=== PATIENT | male | born 1965 ===

== ENCOUNTER 2016-12-31 18:05 | Emergency (ER) | payer OTHER ==
[2016-12-31 18:34] VITALS: BMI 29.9
[2016-12-31 18:38] VITALS: TEMP 98.2
[2016-12-31] MEDS ORDERED: Sodium Chloride 0.9% 1,000 ML IV STA (19:01)
--- NOTE | 2016-12-31 19:05 | ED PDOC ---
Arrival/HPI <ChaceHéctor - Last Filed: 12/31/16 22:56> - General Historian: Patient <Tomas Sol - Last Filed: 01/01/17 01:14> - General Chief Complaint: Abdominal Pain Time Seen by Provider: 12/31/16 18:56 - History of Present Illness Narrative History of Present Illness (Text): 12/31/16 19:02 50 y/o male, no significant pmh, nkda, c/o rt. flank and testicular pain x 1 day with no fall or trauma. Pt. stated that he has sudden onset of rt. flank and rt. lower testicular pain started today this afternoon, admits urinary symptoms, no penile discharge, no nausea or vomiting, no fever or chills, no chest pain or shortness of breath, no numbness or tingling, no other medical or psychological complaints. (Tomas Sol) Past Medical History - Provider Review Nursing Documentation Reviewed: Yes - Infectious Disease Hx of Infectious Diseases: None - Psychiatric Hx Substance Use: No - Anesthesia Hx Anesthesia: No <Tomas Sol - Last Filed: 01/01/17 01:14> Family/Social History - Physician Review Nursing Documentation Reviewed: Yes Family/Social History: Unknown Family HX Smoking Status: Never Smoked Hx Alcohol Use: No Hx Substance Use: No <Tomas Sol - Last Filed: 01/01/17 01:14> Allergies/Home Meds <ChaceHéctor - Last Filed: 12/31/16 22:56> <Tomas Sol - Last Filed: 01/01/17 01:14> Allergies/Adverse Reactions: Allergies No Known Allergies Allergy (Verified 12/31/16 18:34) Review of Systems - Review of Systems Constitutional: absent: Fatigue, Fevers Eyes: absent: Vision Changes ENT: absent: Hearing Changes Respiratory: absent: SOB, Cough Cardiovascular: absent: Chest Pain Gastrointestinal: Abdominal Pain. absent: Nausea, Vomiting Genitourinary Male: absent: Dysuria, Urinary Output Changes Musculoskeletal: Back Pain. absent: Arthralgias, Neck Pain, Joint Swelling Skin: absent: Rash, Pruritis, Skin Lesions, Laceration Neurological: absent: Headache, Dizziness, Focal Weakness <Tomas Sol - Last Filed: 01/01/17 01:14> Physical Exam Vital Signs Reviewed: Yes Temperature: Afebrile Blood Pressure: Normal Pulse: Regular Respiratory Rate: Normal Appearance: Positive for: Well-Appearing, Non-Toxic Pain Distress: Moderate Mental Status: Positive for: Alert and Oriented X 3 - Systems Exam Head: Present: Atraumatic, Normocephalic Pupils: Present: PERRL Extroacular Muscles: Present: EOMI Conjunctiva: Present: Normal Mouth: Present: Moist Mucous Membranes Neck: Present: Normal Range of Motion Respiratory/Chest: Present: Clear to Auscultation, Good Air Exchange. No: Respiratory Distress, Accessory Muscle Use Cardiovascular: Present: Regular Rate and Rhythm, Normal S1, S2. No: Murmurs Abdomen: Present: Tenderness (RLQ), Normal Bowel Sounds. No: Distention, Peritoneal Signs, Rebound, Guarding Genitourinary Male: Present: Normal External Genitalia, Circumcised Penis. No: Lesions, Penile Discharge, Testicle Tenderness, Penile Swelling, Masses, Erythema, Hernias, Testicle Swelling Back: Present: Normal Inspection. No: Midline Tenderness, Paraspinal Tenderness , Decubitus Ulcer Upper Extremity: Present: Normal Inspection. No: Cyanosis, Edema Lower Extremity: Present: Normal Inspection. No: Edema Neurological: Present: GCS=15, Speech Normal, Motor Func Grossly Intact, Gait Normal, Memory Normal Skin: Present: Warm, Dry, Normal Color. No: Rashes Psychiatric: Present: Alert, Oriented x 3, Normal Insight, Normal Concentration <Tomas Sol - Last Filed: 01/01/17 01:14> Vital Signs Temp Pulse Resp BP Pulse Ox 12/31/16 18:37 98.2 F 61 18 145/86 97 Medical Decision Making <Héctor Mas - Last Filed: 12/31/16 22:56> - Lab Interpretations I have reviewed the lab results: Yes Interpretation: Abnormal lab values (+hematuria) - RAD Interpretation Solar Crew Member: Radiologist <Tomas Sol - Last Filed: 01/01/17 01:14> ED Course and Treatment: 12/31/16 19:07 -labs/ua -Testicular sonogram -CT abdomen and pelvis -IVF/toradol -observe and reassess 01/01/17 01:14 -Labs are non-significant -UA show +hematuria with no UTI -CT abdomen and pelvis show: 1.7 x 1.6 x 1.5 cm lesion within RIGHT kidney, indeterminate by CT criteria. Probable small LEFT peripelvic cyst. Mild pelvocaliectasis of RIGHT kidney. Mildly dilated RIGHT ureter. 0.4 x 0.4 x 0.3 cm calculus at/near RIGHT ureterovesical junction. -Testicular sonogram -IVF/flomax/strainer ordered. -Sonogram show rt. hydrocele. -Pain resolved in the ER, pain well control, no UTI. -I Checked the [facility] report, there is no visible recorded controlled substances being prescribed for the past 12 months. -Discharge home with keflex, flomax, Percocet, strainer, stay hydrated, bed rest , follow up with your own pmd and urologist within 2 days, return to the ER for any new or worsening signs or symptoms. (Tomas Sol) - Lab Interpretations Lab Results: 12/31/16 19:20 12/31/16 19:20 Lab Results 12/31/16 19:20: Sodium 140, Potassium 4.3, Chloride 104, Carbon Dioxide 25, Anion Gap 15, BUN 21, Creatinine 1.1, Est GFR ( Amer) > 60, Est GFR (Non- Af Amer) > 60, Random Glucose 126 H, Calcium 9.4, Total Bilirubin 0.6, AST 31, ALT 36, Alkaline Phosphatase 88, Total Protein 7.9, Albumin 4.5, Globulin 3.4, Albumin/Globulin Ratio 1.3 12/31/16 19:20: WBC 10.4, RBC 4.94, Hgb 15.7, Hct 43.2, MCV 87.4, MCH 31.8, MCHC 36.3, RDW 12.1, Plt Count 226, MPV 9.4, Gran % 75.4 H, Lymph % (Auto) 16.9 L, Will % (Auto) 7.1 H, Eos % (Auto) 0.4 L, Baso % (Auto) 0.2, Gran # 7.80 H, Lymph # 1.8, Will # 0.7 H, Eos # 0.0, Baso # 0.02 12/31/16 18:59: Urine Color Yellow, Urine Appearance Sl cloudy, Urine pH 6.0, Ur Specific [place] >= 1.030, Urine Protein 30 H, Urine Glucose (UA) Negative, Urine Ketones Negative, Urine Blood Large H, Urine Nitrate Negative, Urine Bilirubin Negative, Urine Urobilinogen 1.0 H, Ur Leukocyte Esterase Negative, Urine RBC 25 - 30, Urine WBC 0 - 2 - RAD Interpretation Radiology Orders: 12/31/16 19:07 ABDOMEN & PELVIS [ABD & PELVIS IV CONTRAST ONLY] [CT] Stat 12/31/16 21:32 TESTES DUPLEX COMPLETE [US] Stat CT Abdomen and Pelvis: FINDINGS: Limitations: Motion artifact - mild. Lower thorax: Minimal atelectasis. ABDOMEN: Liver: Unremarkable. No mass. Gallbladder and bile ducts: No calcified stones. No ductal dilation. Pancreas: No ductal dilation. No mass. Spleen: No splenomegaly. Adrenals: No mass. Kidneys and ureters: 1.7 x 1.6 x 1.5 cm lesion within RIGHT kidney, indeterminate by CT criteria. Probable small LEFT peripelvic cyst. Mild pelvocaliectasis of RIGHT kidney. Mildly dilated RIGHT ureter. 0.4 x 0.4 x 0.3 cm calculus at/near RIGHT ureterovesical junction. Stomach and bowel: No definite mural thickening. No obstruction. Appendix: Normal caliber. No inflammation. PELVIS: Bladder: Unremarkable. Reproductive: Mildly enlarged prostate. ABDOMEN and PELVIS: Intraperitoneal space: No significant fluid collection. No free air. Bones/joints: Mild degenerative changes of spine. No acute fracture. Soft tissues: Unremarkable. Vasculature: Unremarkable. No aneurysm. Lymph nodes: No pathologically enlarged lymph nodes. IMPRESSION: 1. RIGHT distal ureteral calculus with mild hydroureteronephrosis. 2. Kidney lesion, indeterminate. Recommend nonemergent ultrasound or MRI. 3. Incidental/non-acute findings are described above. Dictated By: Satya Byers MD Dictated Date/Time: 12/31/16 214 Testicular sonogram: FINDINGS: Right testicle: No mass. No torsion. Left testicle: No mass. No torsion. Epididymides: Unremarkable as visualized. Scrotum: Small RIGHT hydrocele. IMPRESSION: 1. No sonographic evidence of testicular torsion. 2. Incidental/non-acute findings are described above. Thank you for allowing us to participate in the care of your patient. Dictated and Authenticated by: Satya Byers MD 12/31/2016 11:29 PM Eastern Time ([place] & [place]) (Tomas Sol) - Medication Orders Current Medication Orders: Sodium Chloride (Sodium Chloride 0.9%) 1,000 mls @ 500 mls/hr IV .Q2H YVON Last Admin: 01/01/17 00:57 Dose: 500 mls/hr Discontinued Medications Sodium Chloride (Sodium Chloride 0.9%) 1,000 mls @ 999 mls/hr IV .Q1H1M STA Stop: 12/31/16 20:01 Last Admin: 12/31/16 19:36 Dose: 999 mls/hr Iohexol (Omnipaque 350 100 Ml) Confirm Administered Dose 350 mg .ROUTE .STK-MED ONE Stop: 12/31/16 20:18 Ketorolac Tromethamine (Toradol) 30 mg IVP STAT STA Stop: 12/31/16 19:02 Last Admin: 12/31/16 19:36 Dose: 30 mg Tamsulosin HCl (Flomax) 0.4 mg PO STAT STA Stop: 12/31/16 22:37 Last Admin: 01/01/17 00:56 Dose: 0.4 mg - PA / HAND THERAPIST / Resident Statement SONIA has reviewed & agrees with the documentation as recorded. <Héctor Mas - Last Filed: 12/31/16 22:56> - PA / HAND THERAPIST / Resident Statement SONIA has reviewed & agrees with the documentation as recorded. <Tomas Sol - Last Filed: 01/01/17 01:14> Disposition/Present on Arrival <Héctor Mas - Last Filed: 12/31/16 22:56> - Present on Arrival Any Indicators Present on Arrival: No History of DVT/PE: No History of Uncontrolled Diabetes: No Urinary Catheter: No History of Decub. Ulcer: No History Surgical Site Infection Following: None - Disposition Have Diagnosis and Disposition been Completed?: Yes Disposition Time: 22:37 Patient Plan: Discharge <Tomas Sol - Last Filed: 01/01/17 01:14> - Disposition Diagnosis: Ureterolithiasis, Renal lesion, Hydrocele Disposition: HOME/ ROUTINE Patient Problems: Current Active Problems Problem Status Onset Ureterolithiasis Acute Renal lesion Acute Condition: IMPROVED Additional Instructions: -Discharge home with keflex, flomax, Percocet, strainer, stay hydrated, bed rest , follow up with your own pmd and urologist within 2 days, return to the ER for any new or worsening signs or symptoms. Prescriptions: Cephalexin [cephalexin] 500 mg PO TID #21 cap oxyCODONE/Acetaminophen [Percocet 5/325 mg Tab] 1 tab PO QID PRN #12 tab PRN Reason: Other Tamsulosin HCl [Flomax] 0.4 mg PO DAILY #8 cap.er.24h Referrals: Jason Jorgensen MD [Staff Provider] - [place] up [place] [facility] [place] - Follow up with primary Forms: [facility] ([place]), WORK NOTE
[2016-12-31 19:36] LABS: ADD MANUAL DIFF? NO
[2016-12-31 19:50] LABS: BASO # 0.02 K/mm3 (0.0-2.0); BASO % 0.2 % (0.0-3.0); EOS % 0.4 % (1.5-5.0); GRAN % 75.4 % (50.0-68.0); HEMATOCRIT 43.2 % (42.0-52.0); LYMPH # 1.8 (1.2-3.4); LYMPH % 16.9 % (22.0-35.0); MEAN CELL VOLUME 87.4 fL (80.0-105.0); MEAN CORPUSCULAR HEMOGLOBIN 31.8 pg (25.0-35.0); MEAN CORPUSCULAR HGB CONC 36.3 g/dl (31.0-37.0); MEAN PLATELET VOLUME 9.4 fl (7.0-11.0); MONO # 0.7 (0.1-0.6); MONO % 7.1 % (1.0-6.0); PLATELET COUNT 226 10^3/uL (120.0-450.0); RED CELL DISTRIBUTION WIDTH 12.1 % (11.5-14.5); WHITE BLOOD COUNT 10.4 10^3/ul (4.5-11.0)
[2016-12-31 19:59] LABS: ALB/GLOB RATIO 1.3 (1.1-1.8); ALKALINE PHOSPHATASE 88 U/L (38-133); ALT/SGPT 36 U/L (7-56); AST/SGOT 31 U/L (15-59); BILIRUBIN,TOTAL 0.6 mg/dL (0.2-1.3); BLOOD UREA NITROGEN 21 mg/dL (7-21); CALCIUM 9.4 mg/dL (8.4-10.5); CARBON DIOXIDE 25 mmol/L (21-33); CHLORIDE 104 mmol/L (98-107); GFR AFRICAN-AMERICAN > 60; GLUCOSE,RANDOM 126 mg/dL (70-110); POTASSIUM 4.3 mmol/L (3.6-5.0); SODIUM 140 mmol/L (132-148); TOTAL PROTEIN 7.9 g/dL (5.8-8.3)
[2016-12-31 20:06] LABS: URINE BILIRUBIN NEGATIVE (NEGATIVE); URINE BLOOD LARGE (NEGATIVE); URINE GLUCOSE (UA) NEGATIVE (NEGATIVE); URINE KETONE NEGATIVE (NEGATIVE); URINE LEUKOCYTE ESTERASE NEGATIVE Leu/uL (NEGATIVE); URINE PROTEIN 30 mg/dL (<30 mg/dL)
[2016-12-31 20:10] LABS: URINE APPEARANCE SL CLOUDY (CLEAR); URINE COLOR YELLOW (YELLOW)
[2016-12-31 20:12] LABS: URINE RBC 25 - 30 /hpf (0-2); URINE WBC 0 - 2 /hpf (0-6)
[2016-12-31] MEDS ORDERED: Iohexol 350 MG/100 ML VIAL ONE (20:17)
--- NOTE | 2016-12-31 21:48 | CT ---
EXAM: CT Abdomen and Pelvis With Intravenous Contrast CLINICAL HISTORY: 51 years old, male; Pain; Abdominal pain; Flank; Right; Additional info: Rt. Flank to the rt. Testicular/pelvic pain x 1 da TECHNIQUE: Axial computed tomography images of the abdomen and pelvis with intravenous contrast. This CT exam was performed using one or more of the following dose reduction techniques: automated exposure control, adjustment of the mA and/or kV according to patient size, and/or use of iterative reconstruction technique. Coronal and sagittal reformatted images were created and reviewed. CONTRAST: 100 mL of OMNI administered intravenously. COMPARISON: No relevant prior studies available. FINDINGS: Limitations: Motion artifact - mild. Lower thorax: Minimal atelectasis. ABDOMEN: Liver: Unremarkable. No mass. Gallbladder and bile ducts: No calcified stones. No ductal dilation. Pancreas: No ductal dilation. No mass. Spleen: No splenomegaly. Adrenals: No mass. Kidneys and ureters: 1.7 x 1.6 x 1.5 cm lesion within RIGHT kidney, indeterminate by CT criteria. Probable small LEFT peripelvic cyst. Mild pelvocaliectasis of RIGHT kidney. Mildly dilated RIGHT ureter. 0.4 x 0.4 x 0.3 cm calculus at/near RIGHT ureterovesical junction. Stomach and bowel: No definite mural thickening. No obstruction. Appendix: Normal caliber. No inflammation. PELVIS: Bladder: Unremarkable. Reproductive: Mildly enlarged prostate. ABDOMEN and PELVIS: Intraperitoneal space: No significant fluid collection. No free air. Bones/joints: Mild degenerative changes of spine. No acute fracture. Soft tissues: Unremarkable. Vasculature: Unremarkable. No aneurysm. Lymph nodes: No pathologically enlarged lymph nodes. IMPRESSION: 1. RIGHT distal ureteral calculus with mild hydroureteronephrosis. 2. Kidney lesion, indeterminate. Recommend nonemergent ultrasound or MRI. 3. Incidental/non-acute findings are described above.
[2016-12-31] MEDS ORDERED: Sodium Chloride 0.9% 1,000 ML IV SCH (22:45)
--- NOTE | 2016-12-31 23:29 | US ---
EXAM: US Scrotum CLINICAL HISTORY: 51 years old, male; Pain; Scrotum pain; Additional info: Rt. Testicular pain TECHNIQUE: Real-time ultrasound of the scrotum with color Doppler and image documentation. COMPARISON: No relevant prior studies available. FINDINGS: Right testicle: No mass. No torsion. Left testicle: No mass. No torsion. Epididymides: Unremarkable as visualized. Scrotum: Small RIGHT hydrocele. IMPRESSION: 1. No sonographic evidence of testicular torsion. 2. Incidental/non-acute findings are described above.
[2017-01-01 01:21] VITALS: BP 128/76; PULSE 58; RESP 16; O2SAT 98
== END 2017-01-01 02:29 | disposition home or self-care (01) ==
LOC: ED 18:05
DX: N20.1 Calculus of ureter (principal); N28.9 Disorder of kidney and ureter, unspecified; N43.3 Hydrocele, unspecified
CPT/HCPCS: 74177; 80053; 81001; 85025; 93975; 96374; 99283; J1885; J7040; Q9967